=== PATIENT | female | born 1980 | race Caucasian/White ===

== ENCOUNTER 2016-12-19 21:25 | Inpatient (IN) | payer MEDICAID ==
[~2016-12-19] VITALS: Ht 157.5 cm; Wt 70.0 kg
[2016-12-19] MEDS ORDERED: NITR0.3T5 SL (21:46)
[2016-12-19] MEDS ORDERED: TIZA2CAP2 PO (21:46)
[2016-12-19] MEDS ORDERED: VENL75CA PO (21:46)
[2016-12-19] MEDS ORDERED: DIAZ5TAB4 PO (21:46)
[2016-12-19] MEDS ORDERED: LISI-170 PO (21:46)
[2016-12-19] MEDS ORDERED: OXYC5CAP2 PO (21:46)
[2016-12-19] MEDS ORDERED: MAGN400T36 PO (21:46)
[2016-12-19] MEDS ORDERED: HYDR-3343 PO (21:46)
[2016-12-19] MEDS ORDERED: PROMETHAZINE 25 MG/ML, 1ML IM PRN (23:00)
[2016-12-19] MEDS ORDERED: morphine SULFATE 10 MG/ML, 1ML IVPush PRN (23:00)
[2016-12-19] MEDS ORDERED: ONDANSETRON 2MG/ML, 2ML IVPush PRN (23:00)
[2016-12-19] MEDS ORDERED: METOCLOPRAMIDE 5 MG/ML, 2ML IVPush PRN (23:00)
[2016-12-19] MEDS ORDERED: LABETALOL 5MG/ML, 20ML IVPush PRN (23:00)
[2016-12-19] MEDS ORDERED: ENALAPRILAT 1.25 MG/ML, 2ML IVPush PRN (23:00)
[2016-12-19] MEDS ORDERED: POTASSIUM CHLORIDE 40 MEQ in SODIUM CHLORIDE 0.9% 500 ML IV ONE (23:30)
[2016-12-20] MEDS ORDERED: ACETAMINOPHEN 325 MG TABLET ONE (00:04)
[2016-12-20] MEDS: ACETAMINOPHEN 325 MG TABLET PO PRN ×3 (00:05→21:07)
[2016-12-20 00:12] LABS: IS PT STATUS REG ER OR PRE ER? YES
[2016-12-20 01:10] VITALS: BP 158/102
[2016-12-20] MEDS ORDERED: EFFEXOR XR MC SCH (01:30)
[2016-12-20] MEDS ORDERED: PRAM0.25 PO (01:34)
[2016-12-20] MEDS: OXYcodone IR 5MG TABLET PO PRN ×2 (02:14→23:55)
[2016-12-20] MEDS: ENOXAPARIN 40 MG/0.4 ML SQ SCH (02:14)
[2016-12-20 04:32] LABS: HEMOGLOBIN 11.5 g/dL (11.7-16.4); WHITE BLOOD COUNT 8.3 x10^3/uL (3.4-10)
[2016-12-20 04:50] LABS: ASPARTATE AMINO TRANSFERASE 14 U/L (15-37); BLOOD UREA NITROGEN 6 mg/dL (7-18)
[2016-12-20 04:53] LABS: IS PT STATUS REG ER OR PRE ER? NO
[2016-12-20 06:10] VITALS: BP 148/101
[2016-12-20 07:18] VITALS: BP 142/96
[2016-12-20] MEDS ORDERED: REGADENOSON 0.4 MG/5 ML SYRINGE ONE (08:08)
[2016-12-20] MEDS ORDERED: POTASSIUM CHLORIDE 20 MEQ TAB.ER.PRT PO ONE (08:30)
[2016-12-20] MEDS ORDERED: VENLAFAXINE 75 MG CAP ER PO SCH (09:00)
[2016-12-20] MEDS: MAGNESIUM OXIDE 400 MG TABLET PO SCH (09:11)
[2016-12-20] MEDS: LISINOPRIL 20 MG TABLET PO SCH ×2 (09:11→21:06)
[2016-12-20] MEDS: VENLAFAXINE 75 MG CAP ER PO SCH (09:11)
[2016-12-20 14:58] VITALS: BP 150/93
[2016-12-20 19:06] VITALS: BP 142/89
[2016-12-20] MEDS ORDERED: DIAZEPAM 5 MG TABLET PO SCH (21:00)
[2016-12-21 03:18] VITALS: BP 153/102
[2016-12-21 06:03] LABS: BLOOD UREA NITROGEN 7 mg/dL (7-18)
[2016-12-21 07:41] VITALS: BP 143/95
[2016-12-21] MEDS: ENOXAPARIN 40 MG/0.4 ML SQ SCH (09:58)
[2016-12-21] MEDS: VENLAFAXINE 75 MG CAP ER PO SCH (09:59)
[2016-12-21] MEDS: LISINOPRIL 20 MG TABLET PO SCH (09:59)
[2016-12-21] MEDS: MAGNESIUM OXIDE 400 MG TABLET PO SCH (09:59)
[2016-12-21] MEDS: ACETAMINOPHEN 325 MG TABLET PO PRN (10:02)
[2016-12-21] MEDS ORDERED: HYDR-3342 PO (10:27)
[2016-12-21] MEDS ORDERED: POTASSIUM CHLORIDE 20 MEQ TAB.ER.PRT PO ONE (10:30)
== END 2016-12-21 11:34 | disposition home or self-care (01) | DRG 78 ==
LOC: ED 21:47 → SUATTDRO 22:24 → EDIP 22:55 → 5SO 12-20 01:05 → DCLOUNGE 12-21 11:20
PROVIDERS: ADMIT Internal Medicine
DX: I67.4 Hypertensive encephalopathy (principal); I16.1 Hypertensive emergency; I11.9 Hypertensive heart disease without heart failure; E87.6 Hypokalemia; K80.20 Calculus of gallbladder without cholecystitis without obstruction; D64.9 Anemia, unspecified; F32.9 Major depressive disorder, single episode, unspecified; F41.9 Anxiety disorder, unspecified; F42.9 Obsessive-compulsive disorder, unspecified; G89.29 Other chronic pain; M79.7 Fibromyalgia; M54.9 Dorsalgia, unspecified
CPT/HCPCS: 36415; 78452; 80048; 80053; 80061; 82088; 83735; 84100; 84244; 84443; 84484; 85025; 93005; 93017; 93306; 93975; 99291; J1650; J2405; J2785; J3480; A9502; C9898; J7040; J7050